=== PATIENT | male | born 1955 | race Caucasian/White ===

== ENCOUNTER 2017-07-25 07:19 | Day surgery (SDC) | payer MEDICARE ==
[2017-07-24 11:46] VITALS: BMI 33.0
--- NOTE | 2017-07-25 01:32 | HP ---
SHORT STAY HISTORY AND PHYSICAL DATE OF ADMISSION: 07/25/2017 HISTORY OF PRESENT ILLNESS: This is a 62-year-old male with history of colon cancer in 2017. The adria guerrero underwent surgery by Dr. Jason Holloway because of obstructing colon CA and underwent sigmoid colec nella and also colostomy. The patient has had extensive chemotherapy. The patient was referred to me by Dr. Jason Holloway for a colonoscopy before the colostomy takedown. ALLERGIES: FENTANYL SOCIAL HISTORY: The patient is disabled. MEDICAL ILLNESSES: 1. Hypertension. 2. Hyperlipidemia. 3. Diabetes mellitus. 4. Status post CVA with residual left-sided weakness. 5. Colon cancer, status post sigmoid resection in 2017. PHYSICAL EXAMINATION: VITAL SIGNS: Pulse is 70, blood pressure 130/70. HEENT: Conjunctivae clear. CARDIOVASCULAR SYSTEM: First and second heart sounds normal. LUNGS: Clear to auscultation. ABDOMEN: Soft to palpate. No organomegaly. No tenderness. No masses. ADMITTING DIAGNOSIS: A 62-year-old male with colon cancer, status post sigmoid resection and colosto my. PLAN: Colonoscopy before the colostomy takedown.
[2017-07-25] MEDS ORDERED: Sodium Chloride 0.9% 10 ML ONE (10:04)
[2017-07-25] MEDS ORDERED: PHENYLEPHRINE-NS 100 MCG/ML 10 ML SYRINGE ONE (13:21)
[2017-07-25] MEDS ORDERED: PROPOFOL 200 MG/20 ML VIAL ONE (13:21)
--- NOTE | 2017-07-25 15:40 | OP ---
DATE OF SURGERY: 07/25/2017 SURGEON: Darvin Lopez M.D. OPERATIVE PROCEDURES: 1. Colonoscopy through colostomy. 2. Flexible sigmoidoscopy. PREOPERATIVE DIAGNOSIS: A 62-year-old male with obstructing colon carcinoma in 2017. He underwent sigmoid colectomy and colostomy. The patient is having a colostomy takedown next week. The patient underwent colonoscopy before colostomy takedown. POSTOPERATIVE DIAGNOSES: 1. Mild diverticular disease close to the colostomy site. 2. Otherwise, normal colonoscopy with colostomy. 3. Flexible sigmoidoscopy normal except for some retained stool around at 25 cm. The mucosa was normal. PROCEDURE IN DETAIL: The patient was placed on his back and was given sedation by Anesthesia Department. A digital exam was done to the colostomy opening. There were no lesions felt. Then, Pentax video colonoscope was introduced through colostomy opening and advanced all the way into the cecum. The appendiceal orifice, ileocecal valve, and cecum, no pathology seen. The mucosa appeared normal throughout the colon. Withdrawal of scope in the cecum, ascending colon, hepatic flexure, and transverse colon, no pathology seen. What appears to be in the descending colon showed mild diverticulitis. The procedure was terminated. The patient was turned on his left lateral position. A rectal exam was done before the scope was advanced into the rectum. No lesions felt on rectal exam. Then, Pentax video colonoscope was introduced into rectum advanced to a distance of about 20 cm. The mucosa appeared normal. At 25 cm, the patient was found to have a large bolus of stool which could not be passed off. Water was irrigated extensively but I could not dislodge fecal bolus. Retroflexion of the scope in rectum showed no pathology. DISCHARGE PLANNING: A 62-year-old male with obstructing colon carcinoma in 2017. He underwent sigmoid colectomy with colostomy. The patient had 6 rounds of chemotherapy. The patient is having a colostomy takedown next week. The patient underwent colonoscopy through colostomy opening and no pathology seen. DISCHARGE RECOMMENDATIONS: 1. The patient was advised to see Dr. Jason Holloway for colostomy takedown. 2. Repeat colonoscopy in 1 year. [facility]
== END 2017-07-25 10:15 | disposition home or self-care (01) ==
LOC: SDC 07:19
PROVIDERS: ATTEND Internal Medicine Gastroenterology
PROC: 0DJD8ZZ Inspection of Lower Intestinal Tract, Via Natural or Artificial Opening Endoscopic (ICD-10-PCS; principal; 2017-07-25)
PROC: 0DJD8ZZ Inspection of Lower Intestinal Tract, Via Natural or Artificial Opening Endoscopic (ICD-10-PCS; 2017-07-25)
DX: Z01.818 Encounter for other preprocedural examination (principal); C18.9 Malignant neoplasm of colon, unspecified; K57.30 Diverticulosis of large intestine without perforation or abscess without bleeding; I10 Essential (primary) hypertension; E78.5 Hyperlipidemia, unspecified; E11.9 Type 2 diabetes mellitus without complications; I69.354 Hemiplegia and hemiparesis following cerebral infarction affecting left non-dominant side; Z79.82 Long term (current) use of aspirin; Z79.84 Long term (current) use of oral hypoglycemic drugs; Z79.899 Other long term (current) drug therapy; Z98.890 Other specified postprocedural states; Z93.3 Colostomy status; Z90.49 Acquired absence of other specified parts of digestive tract; Z88.5 Allergy status to narcotic agent
CPT/HCPCS: A4216; J1642; J2704

== ENCOUNTER 2017-08-27 11:22 | Outpatient (CLI) | payer MEDICARE ==
[2017-08-27 12:01] LABS: #Eosinphils 0.1 thou/uL (0.0-0.7); #Monocytes 0.7 thou/uL (0.11-0.59); #Neutrophils 4.2 thou/uL (1.40-6.50); %Basophils 0.3 % (0.0-1.0); %Eosinophils 1.1 % (0.0-10.0); %Lymphocytes 28.6 % (21.0-51.0); %Monocytes 9.4 % (0.0-10.0); %Neutrophils 60.7 % (42.0-75.0); Hemoglobin 13.5 g/dL (14.0-18.0); Mean Corpuscular HGB CONC 34.6 g/dL (32.0-36.0); Mean Corpuscular Hemoglobin 31.3 pg (27.0-31.0); Mean Corpuscular Volume 90.4 fl (80.0-94.0); Mean Platelet Volume 7.1 fL (7.4-10.4); Platelet Count 194 thou/uL (130-400); RBC Distribution Width 11.8 % (11.5-14.5); White Blood Cell (WBC) Count 6.9 thou/uL (4.8-10.8)
[2017-08-27 12:25] LABS: ALT (SGPT) 16 U/L (8-55); AST (SGOT) 13 U/L (5-34); Alkaline Phosphatase 92 U/L (40-150); Anion Gap 11 mmol/L (10-20); BUN (Urea Nitrogen) 19 mg/dL (8.4-25.7); Bilirubin, Total 0.5 mg/dL (0.2-1.2); Calc. Creatinine Clearance 0 mL/min (70-130); Calcium 9.6 mg/dL (7.8-10.44); Carbon Dioxide 26 mmol/L (23-31); Chloride 102 mmol/L (98-107); Estimated GFR-MDRD 53; Globulin 3.4 g/dL (2.4-3.5); Glucose 137 mg/dL (80-115); Potassium 4.1 mmol/L (3.5-5.1); Protein, Total 7.4 g/dL (5.8-8.1); Sodium 135 mmol/L (136-145)
[2017-08-27 12:51] LABS: Hemoglobin A1c 6.1 % (4.0-6.0)
--- NOTE | 2017-08-28 14:31 | EKG ---
Test Reason : Blood Pressure : / mmHG Vent. Rate : 055 BPM Atrial Rate : 055 BPM P-R Int : 202 ms QRS Dur : 100 ms QT Int : 436 ms P-R-T Axes : 044 102 027 degrees QTc Int : 417 ms Sinus bradycardia Rightward axis Anterior infarct (cited on or before 08-DEC-2016) Abnormal ECG When compared with ECG of 08-DEC-2016 12:20, Vent. rate has decreased BY 42 BPM Questionable change in QRS axis Confirmed by DR. Nico CEVALLOS ([id number]) on 08/28/2017 2:30:51 PM Referred By: JEANIE Confirmed By:DR. Nico CEVALLOS
== END 2017-08-27 11:23 | disposition home or self-care (01) ==
LOC: LABBT 11:22
PROVIDERS: ATTEND Surgery
DX: Z01.818 Encounter for other preprocedural examination (principal); Z93.3 Colostomy status; C18.9 Malignant neoplasm of colon, unspecified; R00.1 Bradycardia, unspecified; I25.2 Old myocardial infarction; R94.31 Abnormal electrocardiogram [ECG] [EKG]
CPT/HCPCS: 80053; 83036; 85025; 93005; 93010

== ENCOUNTER 2018-01-17 14:20 | Emergency (ER) | payer MEDICARE ==
[2018-01-17 14:39] LABS: #Eosinphils 0.1 thou/uL (0.0-0.7); #Lymphocytes 1.9 thou/uL (1.20-3.40); #Monocytes 0.9 thou/uL (0.11-0.59); #Neutrophils 8.3 thou/uL (1.40-6.50); %Basophils 0.3 % (0.0-1.0); %Eosinophils 0.6 % (0.0-10.0); %Lymphocytes 16.8 % (21.0-51.0); %Monocytes 8.2 % (0.0-10.0); %Neutrophils 74.1 % (42.0-75.0); Hemoglobin 13.5 g/dL (14.0-18.0); Mean Corpuscular HGB CONC 32.2 g/dL (32.0-36.0); Mean Corpuscular Hemoglobin 28.2 pg (27.0-31.0); Mean Corpuscular Volume 87.6 fL (78.0-98.0); Mean Platelet Volume 6.8 fL (7.4-10.4); Platelet Count 284 thou/uL (130-400); RBC Distribution Width 12.2 % (11.5-14.5); White Blood Cell (WBC) Count 11.1 thou/uL (4.8-10.8)
[2018-01-17 14:47] LABS: INR-International Normal Ratio 1.1; Prothrombin Time 14.2 SEC (12.0-14.7)
[2018-01-17 15:07] LABS: ALT (SGPT) 20 U/L (8-55); AST (SGOT) 15 U/L (5-34); Albumin 4.2 g/dL (3.4-4.8); Alkaline Phosphatase 164 U/L (40-150); Anion Gap 14 mmol/L (10-20); BUN (Urea Nitrogen) 17 mg/dL (8.4-25.7); Bilirubin, Total 0.9 mg/dL (0.2-1.2); Calc. Creatinine Clearance 0 mL/min (70-130); Calcium 9.7 mg/dL (7.8-10.44); Carbon Dioxide 27 mmol/L (23-31); Chloride 99 mmol/L (98-107); Estimated GFR-MDRD 48; Globulin 4.1 g/dL (2.4-3.5); Glucose 92 mg/dL (80-115); Potassium 4.6 mmol/L (3.5-5.1); Protein, Total 8.3 g/dL (5.8-8.1); Sodium 135 mmol/L (136-145)
[2018-01-17 15:10] LABS: Troponin I Less than 0.010 ng/mL (< 0.028)
--- NOTE | 2018-01-17 15:19 | CT ---
CT BRAIN: DATE: 01/17/18. PROVIDED CLINICAL HISTORY: Left-sided eye droop. FINDINGS: NO comparisons. The ventricular system appears nondilated. There is no shift of the midline structu res. There is encephalomalacia involving the cranial portions of the right lentiform nucleus and rig ht orozco radiata compatible with sequelae of prior infarction. There is no evidence for intracrania l hemorrhage. Al-white differentiation appears preserved. Minimal ethmoid air cell mucosal thicke brian is seen. The extracranial soft tissues and osseous structures appear otherwise unremarkable. IMPRESSION: No evidence for intracranial hemorrhage or mass effect. Findings communicated to Dr. Bassett in the ER at 2:52 p.m. 01/17/18. CODE CR POS: [facility]
== END 2018-01-17 15:18 | disposition home or self-care (01) ==
LOC: ERS 14:20
DX: H04.302 Unspecified dacryocystitis of left lacrimal passage (principal); I10 Essential (primary) hypertension; E11.9 Type 2 diabetes mellitus without complications; Z86.73 Personal history of transient ischemic attack (TIA), and cerebral infarction without residual deficits
CPT/HCPCS: 36416; 70450; 80053; 82553; 84484; 85025; 85610; 85730; 93005

== ENCOUNTER 2018-05-17 08:06 | Outpatient (CLI) | payer MEDICARE ==
--- NOTE | 2018-05-17 13:37 | PET ---
NUCLEAR MEDICINE FDG PET CT: (Positron Emission Tomography) DATE: 05/17/18 HISTORY: 63-year-old male with colon cancer. Restaging. COMPARISON: 01/06/17. TECHNIQUE: IV injection F-18 Fluorodeoxyglucose (FDG) dose: 10.9 mCi PET and attenuation-correction CT performed from skull base to proximal thighs. FINDINGS: SUV (standard uptake value) numbers given are maximum SUVs. QCLR used to obtain SUVs. Multiple FDG-avid osteolytic skeletal lesions in the spine, including: T1 vertebral body SUV 5.0. T2 vertebral body SUV 7.2. T3 vertebral body SUV 7.2. Left T4 vertebral body SUV 6.1. Right T7 pedicle SUV 4.6. Right T12 vertebral body SUV 5.2. Left L5 pedicle SUV 5.7. Midline S3 vertebral body SUV 3.8. Right acetabular roof SUV 4.3. Right inferior pubic ramus SUV 5.0. Sclerotic lesion at posterolateral right 12th rib SUV 3.2. Some of the levels in the thoracic spine may not be accurate because of kyphosis and potential for mi sregistration. There is diffusely increased uptake throughout much of the posterior aspect of the right scapula, SUV 5.9. This portion of the bone is sclerotic: osteoblastic metastatic lesion. No evidence of metastatic activity in the soft tissues of the neck, intrathoracic cavity, intra-abdom inal cavity (including liver), and within the pelvic cavity, with the caveat that there is extensive activity throughout bowel, including colon. The previously demonstrated left lower quadrant colostomy has been taken down, and the left colon has been reanastomosed to the Swati's pouch. At the junction between the anus and rectum, there is a large centrally located focus of intensely in creased uptake with SUV of 11.5. It is uncertain whether this represents tumor activity or activity w ithin the intraluminal contents of the colon that have concentrated in this area at the time of the s can. IMPRESSION: 1. Numerous skeletal osseous metastatic lesions. Most are osteolytic, but some are osteoblastic. Mos t are in the axial skeleton, but one is in the right scapula. 2. Single focus of intensely increased uptake at the rectoanal junction. It is uncertain whether thi s represents tumor activity, or concentration of intraluminal contents, or postsurgical changes. Gary mmend direct visualization. 3. No other evidence of potential soft tissue metastatic lesions. EVONNE Piña POS: [facility]
== END 2018-05-17 08:07 | disposition home or self-care (01) ==
LOC: PET 08:06
PROVIDERS: ATTEND Internal Medicine Hematology & Oncology
DX: C18.9 Malignant neoplasm of colon, unspecified (principal); C79.51 Secondary malignant neoplasm of bone
CPT/HCPCS: 78815; A9552

== ENCOUNTER 2018-05-22 09:04 | Outpatient (CLI) | payer MEDICARE ==
--- NOTE | 2018-05-22 13:07 | MRI ---
MRI THORACIC SPINE WITH AND WITHOUT CONTRAST: 05/22/2018 HISTORY: A 63-year-old male. C18.7, malignant neoplasm of sigmoid colon. C18.7, bone metastasis C79.51. COMPARISON: No prior thoracic spine MRIs or CTs. TECHNIQUE: Multiplanar, multisequence MRI of the thoracic spine, in sagittal and axial planes, pre and post IV i njection of 20 mL of MultiHance Gadolinium-based contrast agent. FINDINGS: There are osseous metastatic lesions at multiple levels, including the following: C7: Almost the entire vertebral body, extending into the left pedicle. T1: Almost entire vertebral body involvement. Left pedicle, right pedicle, and entire right lateral mass. Right lamina. T2: Involvement of entire vertebral body. Bilateral pedicles, entire right lateral mass, and proxim al portion of the spinous process. T3: Involvement of almost the entire vertebral body and bilateral pedicles. T4: Involvement of approximately posterior one-third of the vertebral body and the posterior tip of the spinous process. T5: Involvement of entire left pedicle, left superior articular facet and adjacent posterior aspect of left body. T6: Involvement of left side of vertebral body, approximately one-third of total volume. T7: Entire right pedicle and right superior articular facet. Small amount in left pedicle. T8: Little or no involvement. T9: Focal metastatic lesion to the right of midline in the vertebral body. T10: Schmorl's node at the inferior endplate. Otherwise, uninvolved. T11: Round metastatic lesion in the right side of the vertebral body. T12: Large lesion involving the right one-third to one-half of the vertebral body. There is no vertebral body collapse. No obvious pathologic fracture. Some of lesions involve expans ion of bone. This includes mild encroachment upon the spinal canal by the expanded bone at the upper thoracic spine levels. No severe central spinal canal stenosis at any level. There is prominent po sterior epidural fat pad, resulting in moderate thecal sac stenosis, from approximately T2-T3 through T5. No shannan cord compression. Tiny focus of right paracentral right posterior vertebral body expa nsion mildly indents the right anterior aspect of the spinal cord at the T4 level. Encroachment upon the right T2-3 and the T3-4 neural foramina by expanded osseous tumor, causing moderate neural dao inal stenosis at those levels. No syringohydromyelia or cord edema. IMPRESSION: 1. Numerous osseous metastatic lesions throughout the thoracic spine. This is most severely concent rated in the upper thoracic spine. 2. No shannan cord compression (although there is mild indentation of the spinal cord on the right at T4). 3. No pathological compression fracture identified. POS: [facility]
[2018-05-22] MEDS ORDERED: Gadobenate Dimeglumine 529 MG/1 ML (20ML VIAL) ONE (13:38)
--- NOTE | 2018-05-22 14:27 | MRI ---
MRI LUMBAR SPINE WITH AND WITHOUT CONTRAST: DATE: 05-22-18 HISTORY: 63-year-old male with malignant neoplasm of sigmoid colon. C18.7, bone metastasis C79.51. COMPARISON: No prior CTs or MRIs of lumbar spine. TECHNIQUE: Multiple sequences obtained in axial and sagittal planes, pre and post IV injection of gadolinium-bas ed contrast agent: 20 mL MultiHance FINDINGS: For the purposes of this report, it will be assumed that there are five lumbar type vertebrae. Verteb ral body heights are maintained. There are heterogeneously enhancing osseous metastases: T11: Small, approximately 1 cm lesion at anterior/inferior endplate is probably a metastasis rather t chamorro Schmorl's node. T12: Large metastatic lesion occupying the majority of the volume of the vertebral body. L1: Moderately large lesion in the right side of body. Two smaller lesions, one anteriorly slightly t o the left of midline and one posteriorly at the left body. L3: Moderate sized lesion involving right side of body. L5: Moderately large lesion involving left upper body and adjacent left pedicle, extending into left transverse process. One or more tiny additional lesions on the right side. S2-3: Contiguous lesion at inferior S1 and upper S2 body. There are no epidural, neural foraminal, perivertebral, extradural, or intradural enhancing metastati c lesions. The cauda equina is arranged in a symmetrical, normal distribution throughout the thecal s ac. The conus medullaris terminates at L2. There are minimal degenerative disc changes at L1-2. and a slightly greater degree at L4-5. All of the rest of discs are essentially normal. There is no nerve root impingement or central spinal canal stenosis at any level. There is mild neural foraminal stenosis at some levels, but no high gra de neural foraminal stenosis. Vertebral body heights are maintained. IMPRESSION: 1. Several osseous metastatic lesions in the lumbar spine and sacrum. 2. No pathologic compression fracture, central spinal canal stenosis, significant neural foraminal st enosis, or high grade spondylosis. EVONNE Piña POS: [facility]
== END 2018-05-22 09:05 | disposition home or self-care (01) ==
LOC: MRI 09:04
PROVIDERS: ATTEND Internal Medicine Hematology & Oncology
DX: C18.7 Malignant neoplasm of sigmoid colon (principal); C79.51 Secondary malignant neoplasm of bone
CPT/HCPCS: 72157; 72158; 82565; A9577

== ENCOUNTER 2018-05-30 08:42 | Day surgery (SDC) | payer MEDICARE ==
[2018-05-30 09:03] LABS: Hemoglobin 12.7 g/dL (14.0-18.0); Mean Corpuscular HGB CONC 33.6 g/dL (32.0-36.0); Mean Corpuscular Hemoglobin 28.9 pg (27.0-31.0); Mean Corpuscular Volume 85.9 fL (78.0-98.0); Mean Platelet Volume 6.8 fL (7.4-10.4); Platelet Count 256 thou/uL (130-400); RBC Distribution Width 12.4 % (11.5-14.5); White Blood Cell (WBC) Count 9.6 thou/uL (4.8-10.8)
[2018-05-30 09:10] LABS: INR-International Normal Ratio 1.1; Prothrombin Time 14.6 SEC (12.0-14.7)
[2018-05-30 09:11] LABS: PTT 33.2 SEC (22.9-36.1)
--- NOTE | 2018-05-30 12:45 | CT ---
CT GUIDED BIOPSY L5 LUMBAR SPINE MASS: History: Colon cancer. Abnormal PET scan with multiple osseous lesions. Conscious sedation: At least 30 minutes were spent with the patient for conscious sedation. 1 mg Vers ed, IV. FINDINGS: After explaining the procedure and answering all questions, the patient was placed in the CT table in prone position. Limited imaging was performed. Left posterior approach was planned. Sterile techniqu e, buffered local anesthesia, CT guidance, and a left posterior approach were used to carefully advan ce a 17 gauge trocar needle to the lytic lesion within the left L5 pedicle. Position was confirmed wi CT. Multiple 18 gauge core specimens were obtained and submitted to Dr. Bell from Pathology for ev aluation. Specimen adequacy was confirmed. Needle was removed. Post procedure imaging shows no eviden ce of complication. Patient tolerated the procedure well and was returned to the holding area in good condition for further monitoring. IMPRESSION: Technically successful CT guided biopsy lumbar spine mass. Pathology is pending. POS: [facility]
[2018-05-30 12:50] VITALS: BMI 31.2
== END 2018-05-30 12:30 | disposition home or self-care (01) ==
LOC: CT 08:42
PROVIDERS: ATTEND Internal Medicine Hematology & Oncology
PROC: 0QB03ZX Excision of Lumbar Vertebra, Percutaneous Approach, Diagnostic (ICD-10-PCS; principal; 2018-05-30)
DX: C79.51 Secondary malignant neoplasm of bone (principal); C18.7 Malignant neoplasm of sigmoid colon; E78.5 Hyperlipidemia, unspecified; I12.9 Hypertensive chronic kidney disease with stage 1 through stage 4 chronic kidney disease, or unspecified chronic kidney disease; E11.22 Type 2 diabetes mellitus with diabetic chronic kidney disease; N18.3 Chronic kidney disease, stage 3 (moderate); Z86.73 Personal history of transient ischemic attack (TIA), and cerebral infarction without residual deficits; Z79.82 Long term (current) use of aspirin; Z79.84 Long term (current) use of oral hypoglycemic drugs; Z79.899 Other long term (current) drug therapy; Z88.5 Allergy status to narcotic agent; Z93.3 Colostomy status; Z90.49 Acquired absence of other specified parts of digestive tract
CPT/HCPCS: 20225; 36415; 77012; 85027; 85610; 85730

== ENCOUNTER 2018-06-10 11:26 | Outpatient (CLI) | payer MEDICARE ==
[~2018-06-10 11:26] MED LIST: Gadobenate Dimeglumine 529 MG/1 ML (20ML VIAL) ONE
--- NOTE | 2018-06-10 15:14 | MRI ---
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 Increased left upper extremity weakness. Evaluate for brain metastasis. C79.31 and C18.7. COMPARISON: None. TECHNIQUE: Multiple sequences obtained in axial, sagittal, and coronal planes; pre and post IV injection of gado linium-based contrast agent: 17 mL MultiHance. FINDINGS: There is an approximately 4 x 5.5 x 2 cm heterogeneously enhancing intracranial mass arising from a b road dural base at the left parasagittal upper frontal convexity, which compresses the left frontal c erebral brain parenchyma, effacing local sulci, and causing a moderate degree of vasogenic edema. Thi s vasogenic edema is near, but does not involve, the left precentral gyrus (motor cortex). The mass e ffect distorts and mildly inferiorly displaces the body of the left lateral ventricle. This mass has scattered small amounts of internal hemorrhage. There is an approximately 0.4 cm left to right mild m idline shift of the septum pellucidum. No obstructive hydrocephalus. No intra-axial metastatic lesion is identified. There is a moderate sized region of encephalomalacia and gliosis involving the right basal ganglia, b mandy of right caudate nucleus, and adjacent right periventricular white matter, causing mild ex vacuo dilation of the right lateral ventricle. This has a hemosiderin stain indicating that there was a hem orrhagic component to this old lesion. There is an approximately 2.5 x 1 x 5 cm en plaque, irregular, dural based lesion with heterogeneous enhancement (similar to the lesion at the left cerebral convexity but smaller) at the anterior portio n of the left middle cranial fossa, mildly displacing the adjacent brain parenchyma (temporal tip) an d causing vasogenic edema in the anterior portion of the left middle cranial fossa. There is a right mastoid effusion. IMPRESSION: 1. Large dural, metastatic, extra-axial, intracranial, mildly hemorrhagic mass causing moderate mass effect and moderate vasogenic edema on the left cerebral hemisphere, at the left cerebral convexity. 2 A smaller dural, metastatic, extra-axial intracranial mass in the left middle cranial fossa causin g mild vasogenic edema at the anterior left temporal lobe. 3. Moderate-sized old hemorrhagic insult (either a primary hemorrhage or an infarction with subseque nt hemorrhagic conversion) of the right corpus striatum. This is responsible for at least some, and p ossibly all, of the patient's right-sided motor weakness. EVONNE Piña POS: [facility]
== END 2018-06-10 11:27 | disposition home or self-care (01) ==
LOC: MRI 11:26
PROVIDERS: ATTEND Radiology Radiation Oncology
DX: C18.7 Malignant neoplasm of sigmoid colon (principal); C79.51 Secondary malignant neoplasm of bone; R53.1 Weakness; G93.6 Cerebral edema; G93.9 Disorder of brain, unspecified
CPT/HCPCS: 70553